=== PATIENT | female | born 1990 | race Caucasian/White ===

== ENCOUNTER 2021-03-14 12:30 | Outpatient (CLI) | payer BC | END 2021-03-14 12:31 | disposition home or self-care (01) | LOC: CSHMRI 12:30 | PROVIDERS: ATTEND Orthopaedic Surgery Hand Surgery | DX: M25.531 Pain in right wrist (principal) ==

== ENCOUNTER 2021-07-04 15:17 | Emergency (ER) | payer BC ==
[2021-07-04] MEDS ORDERED: diphenhydrAMINE 50 MG/ML VIAL ONE (18:15)
[2021-07-04] MEDS ORDERED: Ketorolac Tromethamine 30 MG/ML VIAL ONE (18:15)
[2021-07-04] MEDS ORDERED: Metoclopramide HCl 10 MG/2 ML VIAL ONE (18:16)
== END 2021-07-04 19:18 | disposition home or self-care (01) ==
LOC: CSHERS 15:17
DX: G43.909 Migraine, unspecified, not intractable, without status migrainosus (principal)
CPT/HCPCS: 96365; 96375; J1200; J1885; J2765

== ENCOUNTER 2021-09-20 18:21 | Emergency (ER) | payer BC ==
[2021-09-20] MEDS ORDERED: diphenhydrAMINE 50 MG/ML VIAL ONE (19:21)
[2021-09-20] MEDS ORDERED: Ketorolac Tromethamine 30 MG/ML VIAL ONE (19:21)
[2021-09-20] MEDS ORDERED: Metoclopramide HCl 10 MG/2 ML VIAL ONE (19:22)
== END 2021-09-20 20:27 | disposition home or self-care (01) ==
LOC: CSHERS 18:21
DX: G43.909 Migraine, unspecified, not intractable, without status migrainosus (principal)
CPT/HCPCS: 96374; 96375; J1200; J1885; J2765

== ENCOUNTER 2021-09-21 15:23 | Emergency (ER) | payer BC ==
[2021-09-21] MEDS ORDERED: Ketorolac Tromethamine 30 MG/ML VIAL ONE (16:28)
[2021-09-21] MEDS ORDERED: Dexamethasone 10 MG/ML VIAL ONE (16:28)
[2021-09-21] MEDS ORDERED: diphenhydrAMINE 50 MG/ML VIAL ONE (16:28)
[2021-09-21] MEDS ORDERED: Acetaminophen 500 MG TAB ONE (16:29)
[2021-09-21] MEDS ORDERED: Metoclopramide HCl 10 MG/2 ML VIAL ONE (16:29)
[2021-09-21] MEDS ORDERED: Magnesium 2 GM/50 ML BAG (IN WATER) ONE (16:29)
== END 2021-09-21 17:00 | disposition home or self-care (01) ==
LOC: CSHERS 15:23
DX: R51.9 Headache, unspecified (principal)
CPT/HCPCS: 96365; 96368; 96375; J1100; J1200; J1885; J2765; J3475

== ENCOUNTER 2022-08-19 13:49 | Emergency (ER) | payer BC | END 2022-08-19 16:42 | disposition home or self-care (01) | LOC: CSHERS 13:49 | DX: G43.909 Migraine, unspecified, not intractable, without status migrainosus (principal) | CPT/HCPCS: 96374; 96375 ==

== ENCOUNTER 2023-03-29 15:53 | Emergency (ER) | payer BC ==
[2023-03-29] MEDS ORDERED: diphenhydrAMINE 50 MG/ML VIAL ONE (18:20)
[2023-03-29] MEDS ORDERED: Metoclopramide HCl 10 MG/2 ML VIAL ONE (18:20)
[2023-03-29 18:38] LABS: BHCG - Serum Negative (NEGATIVE); Pregs Control Background? CLEAR/WHITE (CLR/WHITE); Pregs Control Bar Appear? YES (CONTROL BAR)
[2023-03-29] MEDS ORDERED: Ketorolac Tromethamine 30 MG/ML VIAL ONE (18:51)
[2023-03-29] MEDS ORDERED: Dexamethasone 10 MG/ML VIAL ONE (18:51)
== END 2023-03-29 19:43 | disposition home or self-care (01) ==
LOC: CSHERS 15:53
DX: G43.909 Migraine, unspecified, not intractable, without status migrainosus (principal)
CPT/HCPCS: 84703; 96374; 96375; J1100; J1200; J1885; J2765

== ENCOUNTER 2023-06-25 10:16 | Emergency (ER) | payer BC ==
[2023-06-25] MEDS ORDERED: diphenhydrAMINE 50 MG/ML VIAL ONE (11:51)
[2023-06-25] MEDS ORDERED: Ketorolac Tromethamine 30 MG (1 mL) VIAL ONE (11:51)
[2023-06-25] MEDS ORDERED: Prochlorperazine 10 MG/2 ML VIAL ONE (11:51)
== END 2023-06-25 14:22 | disposition home or self-care (01) ==
LOC: CSHERS 10:16
DX: G43.919 Migraine, unspecified, intractable, without status migrainosus (principal)
CPT/HCPCS: 96374; 96375; J0780; J1200; J1885

== ENCOUNTER 2024-05-08 08:05 | Outpatient (CLI) | payer BC | END 2024-05-08 08:06 | disposition home or self-care (01) | LOC: CSHULT 08:05 | PROVIDERS: ATTEND Family Medicine | DX: E04.1 Nontoxic single thyroid nodule (principal) | CPT/HCPCS: 76536 ==

== ENCOUNTER 2025-05-15 10:55 | Outpatient (CLI) | payer BC | END 2025-05-15 10:56 | disposition home or self-care (01) | LOC: CSHDTY/OP 10:55 | PROVIDERS: ATTEND Family Medicine | DX: Z71.3 Dietary counseling and surveillance (principal); K76.0 Fatty (change of) liver, not elsewhere classified | CPT/HCPCS: 97802 ==